=== PATIENT | female | born 1990 | race Hispanic/Latino ===

== ENCOUNTER 2021-08-15 10:37 | Emergency (ER) | payer OTHER ==
--- OUTSIDE RECORDS SUMMARY | 2021-08-15 10:40 | XMS REPORT | Continuity of Care Document ---
:1990 Author Organization [facility] t Address [facility] [address] [place] [address] Care Team Providers Name Role Phone [facility] Attending Clinician Unavailable LAURA LAIRD Attending Clinician Unavailable LACIE YU Attending Clinician Unavailable LACIE YU Admitting Clinician Unavailable Problems This patient has no known problems. Allergies, Adverse Reactions, Alerts This patient has no known allergies or adverse reactions. Medications This patient has no known medications. Procedures This patient has no known procedures. Encounters Start End Encounter Admission Attending Care Care Encounter Source Date/Time Date/Time Type Type Clinicians Facility Department ID 2021-07-01 2021-07-01 Outpatient [facility] [id number] [place] 00:00:00 00:00:00 MEHUL [address] 2021-06-08 2021-06-08 Outpatient [facility] [id number] [place] 00:00:00 00:00:00 MEHUL [address] 2021-06-08 2021-06-08 Outpatient [facility] [id number] [place] 00:00:00 00:00:00 MEHUL [address] 2021-02-25 2021-02-25 Emergency E BRADY LAIRD [facility] [id number] [facility] 09:36:00 13:31:00 2020-07-04 2020-07-05 Inpatient ANDREW YU AUGIE [id number] 11:14:00 12:26:00 INDIO Tucker [facility] 2020-07-01 2020-07-02 [facility] [id number] [facility] 14:28:00 02:05:00 INDIO [facility] 2020-04-01 2020-04-01 Outpatient [facility] A[place] [id number] [facility] 10:01:00 12:35:00 INDIO Duran [facility] Results This patient has no known results.
[2021-08-15 11:20] LABS: Absolute Lymphocytes (CBC) 1.4 K/uL (0.7-4.9); Hematocrit 27.8 % (36.0-45.0); Lymphocytes % 27.8 % (15.3-44.8); MPV 7.1 fL (7.6-11.3)
[2021-08-15 11:39] LABS: Potassium 3.7 mmol/L (3.5-5.1); Troponin High Sensitivity 3.6 pg/mL (<58.9)
--- NOTE | 2021-08-15 11:59 | RAD REPORT ---
EXAM DESCRIPTION: RAD - Chest Single View - 08/15/2021 11:48 am CLINICAL HISTORY: SOB COMPARISON: No comparisons FINDINGS: Lines: None. Lungs: No evidence of edema or pneumonia. Pleural: No significant pleural effusions or pneumothorax. Cardiac: The heart size is within normal limits. Bones: No acute fractures. Other: IMPRESSION: No acute cardiopulmonary disease.
[2021-08-15 12:22] LABS: Anisocytosis 1+; Blood Morphology Comment NOTED (NOT SEEN); Hypochromasia 1+; Platelet Estimate INCR; Platelets, Giant 1+; Poikilocytosis 1+; White Blood Cell Scan OK (OK)
[2021-08-15 12:23] LABS: Elliptocytes 1+; Target Cells 1+
[2021-08-15 12:43] LABS: Protime INR 1.25
[2021-08-15] MEDS ORDERED: APIXABAN 5 MG TABLET ONE ×2 (12:45→13:50)
--- NOTE | 2021-08-15 12:51 | RAD REPORT ---
EXAM DESCRIPTION: CT - Chest For Pe Angio - 08/15/2021 12:41 pm CLINICAL HISTORY: sob COMPARISON: Extremity Venous Uni Ltd dated 08/15/2021 FINDINGS: Chest Wall: No suspicious thyroid nodules or pathologic lymphadenopathy. Lungs: Limited by motion. No edema or consolidation. Pleura: No significant effusions or pneumothorax. Mediastinum/derek: No pathologic lymphadenopathy. Pulmonary arteries/Aorta: No central pulmonary embolus. Many of the segmental and subsegmental pulmon nolan arteries are not well assessed due to motion. No aortic aneurysm. Heart: No significant pericardial effusion. Normal heart size. Upper abdomen: Gastric bypass. Bones: No acute abnormality. All CT scans are performed using dose optimization technique as appropriate and may include automated exposure control or mA/KV adjustment according to patient size. IMPRESSION: Limited by motion. No central pulmonary embolus. A small peripheral embolus could be obs cured. No alternate process identified.
--- NOTE | 2021-08-15 12:55 | RAD REPORT ---
EXAM DESCRIPTION: US - Extremity Venous Uni Ltd - 08/15/2021 12:35 pm CLINICAL HISTORY: DVT COMPARISON: None. TECHNIQUE: Real-time sonographic evaluation of the right lower extremity deep venous systems was per formed. FINDINGS: The posterior tibial vein was difficult visualize. The submitted images show a potentially occluded posterior tibial vein. Reportedly, the vein may have not been compressible. The remaining v eins are patent. The patient was scanned in a sitting position due to recent surgery. IMPRESSION: Findings are suspicious for deep venous thrombosis in the right posterior tibial vein. R emaining veins are patent.
--- NOTE | 2021-08-15 13:41 | ER ---
Nurse's Notes [facility] Name: Hermelinda Sauceda Age: 30 yrs Sex: Female : 1990 Arrival Date: 08/15/2021 Time: 10:38 Bed 8 Private MD: Diagnosis: Acute embolism and thrombosis of deep veins of lower extremity-right Presentation: 08/15 10:52 Chief complaint: Patient states: Kendrick guillermo July [birth year], woke this morning with right jl7 leg redness and swelling, mild SOB with activity. Coronavirus screen: At this time, the client does not indicate any symptoms associated with coronavirus-19. Ebola Screen: No symptoms or risks identified at this time. Initial Sepsis Screen: Does the patient meet any 2 criteria? No. Patient's initial sepsis screen is negative. Does the patient have a suspected source of infection? No. Patient's initial sepsis screen is negative. Risk Assessment: Do you want to hurt yourself or someone else? Patient reports no desire to harm self or others. Onset of symptoms was August 15, 2021. 10:52 Method Of Arrival: Ambulatory 7 10:52 Acuity: YANCI 2 jl7 Triage Assessment: 10:54 General: Appears in no apparent distress. uncomfortable, Behavior is calm, cooperative, jl7 appropriate for age. Pain: Complains of pain in right leg Pain currently is 6 out of 10 on a pain scale. Neuro: Level of Consciousness is awake, alert, obeys commands, Oriented to person, place, time, situation. Cardiovascular: Patient's skin is warm and dry. Respiratory: Airway is patent Respiratory effort is even, unlabored, Respiratory pattern is regular, symmetrical. Derm: Skin is pink, warm \T\ dry. 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 - Social history:: Smoking status: Patient denies any tobacco usage or history of. Patient/guardian denies using alcohol, street drugs, The patient lives with family. - Family history:: not pertinent. Screenin:03 Abuse screen: Denies threats or abuse. Denies injuries from another. Nutritional jl7 screening: No deficits noted. Tuberculosis screening: No symptoms or risk factors identified. Fall Risk IV access (20 points). Total Lepe Fall Scale indicates No Risk (0-24 pts). Assessment: 12:03 Reassessment: Pt requesting to be wheeled to the restroom, informed pt due to possible jl7 DVT and/or PE she is to remain in bed and walking increased the risk for dislodging any clot there may be, pt verbalized understanding and continues to request to not use the bedpan. Reports she will not be able to get on top of the bedpan due to her recent tummy tuck. Assisted pt to bedside commode. Vital Signs: 10:52 BP 122 / 68; Pulse 93; Resp 17; Pulse Ox 100% on R/A; Weight 93.89 kg; Height 5 ft. 8 jl7 in. (172.72 cm); Pain 6/10; 11:00 Temp 97.7(TE); jl7 12:03 BP 123 / 70; Pulse 94; Resp 15; Pulse Ox 98% ; jl7 13:30 BP 117 / 63; Pulse 80; Resp 15; Pulse Ox 98% ; jl7 10:52 Body Mass Index 31.47 (93.89 kg, 172.72 cm) jl7 ED Course: 10:38 Patient arrived in ED. as 10:43 Dequan Menendez MD is Attending Physician. ma2 10:51 Inserted saline lock: 20 gauge in right antecubital area, using aseptic technique. em1 Blood collected. 10:54 Triage completed. jl7 10:54 Arm band placed on right wrist. jl7 10:55 Nicholas Issa RN is Primary Nurse. jl7 11:00 Initial lab(s) drawn, by ED staff, sent to lab. jl7 11:23 EKG done, by ED staff, reviewed by Dequan Menendez MD. em1 11:45 Notified ED physician of a critical lab result(s). D-Dimer 2165. jl7 11:50 XRAY Chest (1 view) In Process Unspecified. EDMS 12:03 Patient has correct armband on for positive identification. Bed in low position. Call jl7 light in reach. Side rails up X2. Client placed on continuous cardiac and pulse oximetry monitoring. NIBP monitoring applied. Warm blanket given. 12:35 US Extremity Venous Unilateral Ltd In Process Unspecified. EDMS 12:43 CT Chest For PE Angio In Process Unspecified. EDMS 13:39 Kurtis Peterson MD is Referral Physician. ma2 14:02 No provider procedures requiring assistance completed. IV discontinued, intact, jl7 bleeding controlled, No redness/swelling at site. Pressure dressing applied. Administered Medications: 13:30 Drug: Eliquis (apixaban) 10 mg Route: PO; jl7 14:01 Follow up: Response: Medication administered at discharge. jl7 Medication: 12:03 VIS not applicable for this client. jl7 Outcome: 13:40 Discharge ordered by . [facility] 14:02 Discharged to home via wheelchair, with family. jl7 14:02 Condition: stable 14:02 Discharge instructions given to patient, family, Instructed on discharge instructions, follow up and referral plans. medication usage, Demonstrated understanding of instructions, follow-up care, medications, Prescriptions given X 1. 14:03 Patient left the ED. jl7 Signatures: Dispatcher [employer] EDMS Jennifer Russell Eric em1 Meghna Reza, MONET RN [email or web address] Nicholas Issa RN RN jl7 Dequan Menendez MD MD wa2 Corrections: (The following items were deleted from the chart) 10:50 10:47 Meghna Reza, RN is Primary Nurse. aa5 aa5
--- NOTE | 2021-08-15 13:41 | EDPHYS ---
Physician Documentation [facility] Name: Hermelinda Sauceda Age: 30 yrs Sex: Female : 1990 Arrival Date: 08/15/2021 Time: 10:38 Bed 8 Private MD: ED Physician Dequan Menendez HPI: 08/15 13:33 This 30 yrs old Female presents to ER via Ambulatory with complaints of r/o ma2 dvt. 13:34 Patient had tummy tuck surgery will, presents with right leg swelling for 2 days mild, ma2 denies pain or trauma. Denies shortness of breath cough or chest pain. 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 - Social history:: Smoking status: Patient denies any tobacco usage or history of. Patient/guardian denies using alcohol, street drugs, The patient lives with family. - Family history:: not pertinent. ROS: 13:34 Constitutional: Negative for fever, chills, and weight loss, Eyes: Negative for injury, ma2 pain, redness, and discharge, ENT: Negative for injury, pain, and discharge, Neck: Negative for injury, pain, and swelling, Cardiovascular: Negative for chest pain, palpitations, and edema, Respiratory: Negative for shortness of breath, cough, wheezing, and pleuritic chest pain, Abdomen/GI: Negative for abdominal pain, nausea, diarrhea, and constipation, MS/Extremity: Negative for injury and deformity, Skin: Negative for injury, rash, and discoloration, Neuro: Negative for headache, weakness, numbness, tingling, and seizure, Psych: Negative for depression, anxiety, suicide ideation, homicidal ideation, and hallucinations, Allergy/Immunology: Negative for hives, rash, and allergies. Exam: 13:34 Constitutional: This is a well developed, well nourished patient who is awake, alert, ma2 and in no acute distress. ENT: Nares patent. No nasal discharge, no septal abnormalities noted. Tympanic membranes are normal and external auditory canals are clear. Oropharynx with no redness, swelling, or masses, exudates, or evidence of obstruction, uvula midline. Mucous membranes moist. Neck: Trachea midline, no thyromegaly or masses palpated, and no cervical lymphadenopathy. Supple, full range of motion without nuchal rigidity, or vertebral point tenderness. No Meningismus. Chest/axilla: Normal chest wall appearance and motion. Nontender with no deformity. No lesions are appreciated. Cardiovascular: Regular rate and rhythm with a normal S1 and S2. No gallops, murmurs, or rubs. Normal PMI, no JVD. No pulse deficits. Respiratory: Lungs have equal breath sounds bilaterally, clear to auscultation and percussion. No rales, rhonchi or wheezes noted. No increased work of breathing, no retractions or nasal flaring. Abdomen/GI: Soft, non-tender, with normal bowel sounds. No distension or tympany. No guarding or rebound. No evidence of tenderness throughout. Skin: Warm, dry with normal turgor. Normal color with no rashes, no lesions, and no evidence of cellulitis. MS/ Extremity: Pulses equal, no cyanosis. Neurovascular intact. Full, normal range of motion. Neuro: Awake and alert, GCS 15, oriented to person, place, time, and situation. Cranial nerves II-XII grossly intact. Motor strength 5/5 in all extremities. Sensory grossly intact. Cerebellar exam normal. Normal gait. 13:34 Musculoskeletal/extremity: Extremities: ROM: intact in all extremities, Circulation is intact in all extremities. Pulses: are normal with no appreciated deficits, Perfusion: the patient is normally perfused throughout, Sensation intact. Compartment Syndrome exam of affected extremity: is normal. no pain, no numbness, no tingling, no sensation deficit, Tendon exam: DVT Exam: no pain, no tenderness, negative Homans' sign noted on exam, no appreciated bluish discoloration, no erythema, no increased warmth, swelling. 13:34 MS/ Extremity: As above there is swelling of the right calf muscle, excluding thigh, ma2 otherwise no change in discoloration pulses equal, no cyanosis. Neurovascular intact. Full, normal range of motion. Vital Signs: 10:52 BP 122 / 68; Pulse 93; Resp 17; Pulse Ox 100% on R/A; Weight 93.89 kg; Height 5 ft. 8 jl7 in. (172.72 cm); Pain 6/10; 11:00 Temp 97.7(TE); jl7 12:03 BP 123 / 70; Pulse 94; Resp 15; Pulse Ox 98% ; jl7 13:30 BP 117 / 63; Pulse 80; Resp 15; Pulse Ox 98% ; jl7 10:52 Body Mass Index 31.47 (93.89 kg, 172.72 cm) 7 MDM: 13:34 Differential diagnosis: contusion, abrasion, Isolated DVT of the right leg there is no ma2 PE on CT. Patient also has no signs or symptoms of PE. 13:36 Data reviewed: vital signs, nurses notes. Counseling: I had a detailed discussion with ma2 the patient and/or guardian regarding: the historical points, exam findings, and any diagnostic results supporting the discharge/admit diagnosis, the presence of at least one elevated blood pressure reading (>120/80) during this emergency department visit, the need for outpatient follow up. Response to treatment: There is no appreciated change of the patient's symptoms at this time. 13:37 ED course: DVT of right popliteal vein, isolated, will give Eliquis in the ER, can ma2 start Eliquis twice a day ten milligram for 1 week and then 5 mg twice daily. 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 13:40 Patient medically screened. [facility] 08/15 11:01 Order name: Basic Metabolic Panel; Complete Time: 12:31 de08/15 11:01 Order name: CBC with Diff; Complete Time: 12:31 [facility] 08/15 11:01 Order name: D-Dimer; Complete Time: 12:31 [facility] 08/15 11:01 Order name: NT PRO-BNP; Complete Time: 12:31 [facility] 08/15 11:01 Order name: Troponin HS; Complete Time: 12:31 [facility] 08/15 12:20 Order name: SARS-COV-2 RT PCR (Document "Date of Onset" if Symptomatic); Complete Time: eb 13:49 08/15 10:55 Order name: US Extremity Venous Unilateral Ltd; Complete Time: 13:26 de2 08/15 11:01 Order name: XRAY Chest (1 view); Complete Time: 12:31 de2 08/15 11:01 Order name: EKG; Complete Time: 11:08/15 12:03 Order name: CT Chest For PE Angio; Complete Time: 13: de2 08/15 12:23 Order name: CBC Smear Scan; Complete Time: 12:31 EDMS 08/15 12:31 Order name: PT-INR; Complete Time: 13: ma2 08/15 12:31 Order name: Ptt, Activated; Complete Time: 13: de2 08/15 11:01 Order name: Cardiac monitoring; Complete Time: 11: de08/15 11:01 Order name: EKG - Nurse/Tech; Complete Time: 11: de08/15 11:01 Order name: IV Saline Lock; Complete Time: 11: de08/15 11:01 Order name: Labs collected and sent; Complete Time: 11: de08/15 11:01 Order name: O2 Per Protocol; Complete Time: 11:08/15 11:01 Order name: O2 Sat Monitoring; Complete Time: 11:04 ma2 Administered Medications: 13:30 Drug: Eliquis (apixaban) 10 mg Route: PO; jl7 14:01 Follow up: Response: Medication administered at discharge. jl7 Disposition Summary: 08/15/21 13:40 Discharge Ordered Location: Home ma2 Condition: Stable ma2 Diagnosis - Acute embolism and thrombosis of deep veins of lower extremity - right ma2 Followup: ma2 - With: Kurtis Peterson MD - When: Tomorrow - Reason: If symptoms return, Continuance of care Followup: ma2 - With: Private Physician - When: Tomorrow - Reason: If symptoms return, Continuance of care Discharge Instructions: - Discharge Summary Sheet ma2 - Deep Vein Thrombosis ma2 Forms: - Medication Reconciliation Form ma2 - Thank You Letter ma2 - Antibiotic Education ma2 - Prescription Opioid Use ma2 Prescriptions: - ELIQUIS 10 mg twice a day for 1 week. After 1 week, reduce dose to the 5 mg twice a day - take 1 tablet by ORAL route 2 times per day; 60 tablet; Refills: 0, Product ma2 Selection Permitted Signatures: Dispatcher [employer] Nicholas Núñez RN RN jl7 Dequan Menendez MD MD ma2
[2021-08-15 19:38] VITALS: TEMP 97.7
[2021-08-15 19:40] VITALS: O2SAT 98
[2021-08-15 19:41] VITALS: BP 117/63
--- NOTE | 2021-08-16 14:48 | EKG ---
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
== END 2021-08-15 14:03 | disposition home or self-care (01) ==
LOC: ER 10:37
DX: I82.401 Acute embolism and thrombosis of unspecified deep veins of right lower extremity (principal); Z20.822 Contact with and (suspected) exposure to COVID-19
CPT/HCPCS: 93005; 85025; 80048; 36415; 85610; 85379; 85730; 84484; 83880; 71275; 71045; 93971; 99284; U0003; Q9967

== ENCOUNTER 2021-08-17 08:51 | Emergency (ER) | payer OTHER ==
--- OUTSIDE RECORDS SUMMARY | 2021-08-17 08:54 | XMS REPORT | Continuity of Care Document ---
:[address] [facility] t Address Critical access hospital[facility] [address] [place] [address] Care Team Providers Name Role Phone MEHUL KWON Attending Clinician Unavailable BRADY LAIRD Attending Clinician Unavailable LACIE YU Attending [...] Clinicians Facility Department ID 2021-07-01 2021-07-01 Outpatient [facility] [id number] [place] 00:00:00 00:00:00 MEHUL [address] 2021-06-08 2021-06-08 Outpatient [facility] [id number] [place] 00:00:00 00:00:00 MEHUL [address] 2021-06-08 2021-06-08 Outpatient [facility] [id number] [place] 00:00:00 00:00:00 MEHUL [address] 2021-02-25 2021-02-25 Emergency [facility] [address] [place] 09:36:00 13:31:00 2020-07-04 2020-07-05 Inpatient AIMEE TONG [place] [id number] 11:14:00 12:26:00 INDIO jane [facility] 2020-07-01 2020-07-02 [id number] [facility] 14:28:00 02:05:00 INDIO jane [facility] 2020-04-01 2020-04-01 [facility] [id number] [facility] 10:01:00 12:35:00 INDIO jane [facility] Results This patient has no known results.
--- NOTE | 2021-08-17 09:47 | EDPHYS ---
Physician Documentation [facility] Name: Hermelinda Sauceda Age: 30 yrs Sex: Female : 1990 Arrival Date: 08/17/2021 Time: 08:53 Bed Treatment Private MD: Gilberto Anderson HPI: 08/17 09:10 This 30 yrs old Female presents to ER via Ambulatory with complaints of Blood jmm Clot. 09:10 The patient presents with swelling. Is a 30-year-old female who was recently diagnosed jmm with a DVT in her right leg the presents emerged part with complaints of increased swelling, in particular to the right proximal leg. Patient denies chest pain or shortness of breath. Patient was recently put on a course of Xarelto.. 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 - Social history:: Smoking status: Patient denies any tobacco usage or history of. ROS: 09:10 Constitutional: Negative for fever, chills, and weight loss, Cardiovascular: Negative jmm for chest pain, palpitations, and edema, Respiratory: Negative for shortness of breath, cough, wheezing, and pleuritic chest pain. 09:10 MS/extremity: Positive for swelling. 09:10 All other systems are negative. Exam: 09:10 Constitutional: This is a well developed, well nourished patient who is awake, alert, jmm and in no acute distress. Head/Face: atraumatic. Eyes: EOMI, no conjunctival erythema appreciated ENT: Moist Mucus Membranes Neck: Trachea midline, Supple Chest/axilla: Normal chest wall appearance and motion. Cardiovascular: Regular rate and rhythm. No edema appreciated Respiratory: Normal respirations, no respiratory distress appreciated Abdomen/GI: Non distended, soft Back: Normal ROM Skin: General appearance color normal MS/ Extremity: Moves all extremities, no obvious deformities appreciated, no edema noted to the lower extremities Neuro: Awake and alert Psych: Behavior is normal, Mood is normal, Patient is cooperative and pleasant Vital Signs: 09:05 BP 121 / 61; Pulse 72; Resp 16; Temp 98.5; Pulse Ox 98% ; Weight 93.89 kg; Height 5 ft. ll1 8 in. (172.72 cm); Pain 3/10; 09:05 Body Mass Index 31.47 (93.89 kg, 172.72 cm) ll1 MDM: 09:11 Patient medically screened. [facility] 19:42 Data reviewed: vital signs, nurses notes. Counseling: I had a detailed discussion with william the patient and/or guardian regarding: the historical points, exam findings, and any diagnostic results supporting the discharge/admit diagnosis, radiology results, the need for outpatient follow up, to return to the emergency department if symptoms worsen or persist or if there are any questions or concerns that arise at home. ED course: Ultrasound revealed similar study. Patient was evaluated by Dr. Jay. Vital signs are normal. I do not suspect PE. Patient otherwise given strict return precautions. Patient understood agrees plan of care. 08/17 09:09 Order name: US Extremity Venous Unilateral Ltd [facility] Administered Medications: No medications were administered Disposition Summary: 08/17/21 09:46 Discharge Ordered Location: Home [facility] Condition: Stable [facility] Diagnosis - Deep Vein Thrombosis [facility] Followup: [facility] - With: Kurtis Peterson MD - When: 2 - 3 days - Reason: Recheck today's complaints, Continuance of care, Re-evaluation by your physician Discharge Instructions: - Discharge Summary Sheet [facility] - Deep Vein Thrombosis [facility] Forms: - Medication Reconciliation Form [facility] - Thank You Letter [facility] - Antibiotic Education [facility] - Prescription Opioid Use [facility] Signatures: Dispatcher [employer] EDMS Inocente Marcelo PA PA jmm Lewis, Lynsay, RN RN ll1 Corrections: (The following items were deleted from the chart) 09:53 09:27 IV Saline Lock ordered. [facility] ll1
--- NOTE | 2021-08-17 09:47 | ER ---
Nurse's Notes [facility] Name: Hermelinda Sauceda Age: 30 yrs Sex: Female : 1990 Arrival Date: 08/17/2021 Time: 08:53 Bed Treatment Private MD: Diagnosis: Deep Vein Thrombosis Presentation: 08/17 09:05 Chief complaint: Patient states: R leg swelling for 1 day. Knows she has a blood clot ll1 in that leg. Wants to make sure it hasn't traveled. No CP or SOB. Coronavirus screen: Vaccine status: Patient reports receiving the 2nd dose of the covid vaccine. Client denies travel out of the [place] in the last 14 days. At this time, the client does not indicate any symptoms associated with coronavirus-19. Ebola Screen: Patient denies travel to an Ebola-affected area in the 21 days before illness onset. Initial Sepsis Screen: Does the patient meet any 2 criteria? No. Patient's initial sepsis screen is negative. Does the patient have a suspected source of infection? No. Patient's initial sepsis screen is negative. Risk Assessment: Do you want to hurt yourself or someone else? Patient reports no desire to harm self or others. Onset of symptoms was August 17, 2021. 09:05 Method Of Arrival: Ambulatory ll1 09:05 Acuity: YANCI 3 ll1 Triage Assessment: 09:07 General: Appears uncomfortable, Behavior is cooperative, appropriate for age. Pain: ll1 Complains of pain in R leg Quality of pain is described as aching. Neuro: No deficits noted. Cardiovascular: No deficits noted. Respiratory: No deficits noted. Musculoskeletal: Reports pain in right leg. PSYCHIATRIC ORDERLY: 09:58 LMP N/A - ll1 Historical: - Allergies: 09:06 No Known Allergies; ll1 - PMHx: 09:06 None; ll1 - PSHx: 09:06 gastric sleeve; Tummy tuck; ll1 - Immunization history:: Client reports receiving the 2nd dose of the Covid vaccine. - Social history:: Smoking status: Patient denies any tobacco usage or history of. Screenin:57 Abuse screen: Denies threats or abuse. Nutritional screening: No deficits noted. ll1 Tuberculosis screening: No symptoms or risk factors identified. Fall Risk Total Lepe Fall Scale indicates No Risk (0-24 pts). Assessment: 09:57 Reassessment: No changes from previously documented assessment. Patient and/or family ll1 updated on plan of care and expected duration. Pain level reassessed. Patient is alert, oriented x 3, equal unlabored respirations, skin warm/dry/pink. Vital Signs: 09:05 BP 121 / 61; Pulse 72; Resp 16; Temp 98.5; Pulse Ox 98% ; Weight 93.89 kg; Height 5 ft. ll1 8 in. (172.72 cm); Pain 3/10; 09:05 Body Mass Index 31.47 (93.89 kg, 172.72 cm) ll1 ED Course: 08:53 Patient arrived in ED. mr 08:54 Inocente Marcelo PA is PHCP. [facility] 08:54 Gilberto Robbins MD is Attending Physician. [facility] 09:05 Arm band placed on Patient placed in an exam room, on a stretcher. ll1 09:06 Triage completed. ll1 09:32 US Extremity Venous Unilateral Ltd In Process Unspecified. EDMS 09:46 Kurtis Peterson MD is Referral Physician. [facility] 09:57 No provider procedures requiring assistance completed. Patient did not have IV access ll1 during this emergency room visit. 09:58 Patient has correct armband on for positive identification. Bed in low position. Call ll1 light in reach. Cardiac monitoring not applicable on this patient. Administered Medications: No medications were administered Medication: 18:14 VIS not applicable for this client. ll1 Outcome: 09:46 Discharge ordered by . [facility] 09:58 Patient left the ED. 1 09:58 Discharged to home ambulatory. 1 09:58 Condition: stable 09:58 Discharge instructions given to patient, Instructed on discharge instructions, follow up and referral plans. Demonstrated understanding of instructions, follow-up care. Signatures: Dispatcher [employer] EDMS Inocente Marcelo PA PA jmm Rivera, Mary Marquise Samuels RN RN ll1
[2021-08-17 10:01] VITALS: BP 121/61; TEMP 98.5; O2SAT 98
--- NOTE | 2021-08-17 10:04 | RAD REPORT ---
[facility]34 am CLINICAL HISTORY: Right leg swelling. COMPARISON: August 15, 2021 FINDINGS: Right common femoral, superficial femoral, and popliteal veins are compressible and demons trate augmentation. Doppler demonstrates good flow. Echogenic material consistent with acute thrombus is present within the right posterior tibial vein. The vein is not compressible. Grayscale, color and spectral analysis performed on all vessels IMPRESSION: Acute thrombus right posterior tibial vein without significant change from the prior exa m
== END 2021-08-17 09:58 | disposition home or self-care (01) ==
LOC: ER 08:51
DX: I82.401 Acute embolism and thrombosis of unspecified deep veins of right lower extremity (principal)
CPT/HCPCS: 93971; 99283

== ENCOUNTER 2021-08-26 05:19 | Emergency (ER) | payer OTHER ==
--- OUTSIDE RECORDS SUMMARY | 2021-08-26 05:21 | XMS REPORT | Continuity of Care Document ---
:1990 Author Organization [facility] t Address [facility] [place] [address] Care Team Providers Name Role Phone MEHUL [...] Date/Time Type Type Clinicians Facility Department ID 2021-08-20 2021-08-20 Outpatient [facility] [id number] [place] 00:00:00 00:00:00 MEHUL [address] 2021-07-01 2021-07-01 Outpatient [facility] [id number] [place] 00:00:00 00:00:00 MEHUL [address] 2021-06-08 2021-06-08 Outpatient [facility] [id number] [place] 00:00:00 00:00:00 MEHUL [address] 2021-06-08 2021-06-08 Outpatient [facility] [id number] [place] 00:00:00 00:00:00 MEHUL [address] 2021-02-25 2021-02-25 Emergency [facility] [address] 09:36:00 13:31:00 2020-07-04 2020-07-05 [facility]patient [facility] [address] 11:14:00 12:26:00 INDIO jane [facility] 2020-07-01 2020-07-02 Outpatient [facility] [id number] 14:28:00 02:05:00 INDIO jane [facility] 2020-04-01 2020-04-01 Outpatient [facility] [address] 10:01:00 12:35:00 INDIO jane [facility] Results This patient has no known results.
[2021-08-26 06:03] LABS: Absolute Lymphocytes (CBC) 2.2 K/uL (0.7-4.9); Hematocrit 22.3 % (36.0-45.0); Lymphocytes % 43.1 % (15.3-44.8); MPV 7.2 fL (7.6-11.3); RBC Red Blood Cell Count 2.84 M/uL (3.86-4.86)
[2021-08-26 06:11] LABS: Urine Blood 3+ (Negative); Urine Glucose Negative (Negative); Urine Protein 2+ (Negative); Urine Specific Gravity >=1.030 (1.005-1.030); Urine pH 5.5 (5.0-7.0)
[2021-08-26 06:12] LABS: Potassium 3.3 mmol/L (3.5-5.1)
--- NOTE | 2021-08-26 09:23 | ER ---
Nurse's Notes [facility] Name: Hermelinda Sauceda Age: 30 yrs Sex: Female : 1990 Arrival Date: 08/26/2021 Time: 05:21 Bed 23 Private MD: Diagnosis: Vaginal bleeding secondary to Xerelto use, Anemia Presentation: 08/26 05:33 Chief complaint: Patient states: "In July I had surgery and on August 15 I can in and as6 was diagnosed with a DVT, I had been on blood thinners and now I have been on my period for 11 days. Is it really heavy. I am soaking through a tampon every hour". Coronavirus screen: At this time, the client does not indicate any symptoms associated with coronavirus-19. Ebola Screen: No symptoms or risks identified at this time. Initial Sepsis Screen: Does the patient meet any 2 criteria? No. Patient's initial sepsis screen is negative. Does the patient have a suspected source of infection? No. Patient's initial sepsis screen is negative. Risk Assessment: Do you want to hurt yourself or someone else? Patient reports no desire to harm self or others. Onset of symptoms was August 16, 2021. 05:33 Method Of Arrival: Ambulatory as6 05:33 Acuity: YANCI 3 as6 Triage Assessment: 05:38 General: Appears in no apparent distress. Behavior is calm, cooperative. Pain: as6 Complains of pain in abdomen Quality of pain is described as crampy. : Reports cramping, vaginal bleeding that is bright red, with clots, heavy flow. 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 - Social history:: Smoking status: Patient denies any tobacco usage or history of. Screenin:53 Abuse screen: Denies threats or abuse. Denies injuries from another. Nutritional as6 screening: No deficits noted. Tuberculosis screening: No symptoms or risk factors identified. Fall Risk None identified. Assessment: 05:52 General: Appears in no apparent distress. Behavior is calm, cooperative. Pain: as6 Complains of pain in abdomen Quality of pain is described as crampy. Neuro: Level of Consciousness is awake, alert, obeys commands, Oriented to person, place, time, situation. Cardiovascular: JVD is absent Patient's skin is warm and dry. Respiratory: Respiratory effort is even, unlabored, Respiratory pattern is regular, symmetrical. GI: Reports lower abdominal pain. : Reports cramping, in bilateral lower quadrant(s) vaginal bleeding that is bright red, with clots, heavy flow. 06:48 Reassessment: Patient and/or family updated on plan of care and expected duration. Pain ag7 level reassessed. Patient is alert, oriented x 3, equal unlabored respirations, skin warm/dry/pink. The patient verbalize x 1 tampon per hour-two, heavy menstrual with clotting Patient denies pain at this time. 10:05 Reassessment: Patient appears in no apparent distress at this time. Patient and/or ss family updated on plan of care and expected duration. Pain level reassessed. Patient is alert, oriented x 3, equal unlabored respirations, skin warm/dry/pink. Attempted to call report to [facility]. Nurse is unavailable and states to call back in 15 minutes. 10:29 Reassessment: Report given to MONET Palacio at [facility]. Neuro: Donald ss Agitation-Sedation Scale (RASS): 0 - Alert and Calm Level of Consciousness is awake, alert, obeys commands. Derm: Skin is pink, warm \\T\\ dry. normal. 11:27 Reassessment: Awaiting EMS transportation. 12:03 Reassessment: Report given to EMS. Vital Signs: 05:33 BP 125 / 61; Pulse 87; Resp 18 S; Temp 98.3(O); Pulse Ox 100% on R/A; Weight 88.9 kg as6 (R); Height 5 ft. 7 in. (170.18 cm) (R); Pain 8/10; 10:15 BP 114 / 65; Pulse 84; Resp 14; Pulse Ox 100% on R/A; ss 05:33 Body Mass Index 30.70 (88.90 kg, 170.18 cm) as6 ED Course: 05:21 Patient arrived in ED. kz 05:36 Triage completed. as6 05:38 Arm band placed on. as6 05:50 Mundo Cano, RN is Primary Nurse. as6 05:51 Inserted saline lock: 20 gauge in right antecubital area, using aseptic technique. as6 Blood collected. 06:14 Dany Henderson MD is Attending Physician. kdr 06:50 Patient has correct armband on for positive identification. Bed in low position. Call ag7 light in reach. Adult w/ patient. 09:26 initiated transfer to [facility]. bd 10:58 pt accepted in transfer to [facility] by dr Bhardwaj,admin approval given by elysia Stern. 12:03 No provider procedures requiring assistance completed. Patient transferred, IV remains ss in place. Administered Medications: No medications were administered Medication: 06:50 VIS not applicable for this client. ag7 Outcome: 09:23 ER care complete, transfer ordered by . kdr 12:03 Transferred by ground EMS to [facility], Transfer form completed. ss 12:03 Condition: good 12:03 Instructed on Demonstrated understanding of instructions. 12:04 Patient left the ED. ss Signatures: Loreta Arechiga Kevin, MD MD kdr Smirch, Shelby, RN RN ss Mundo Cano, RN RN as6 Radha Somers Angela RN RN ag7
--- NOTE | 2021-08-26 09:23 | EDPHYS ---
Physician Documentation [facility] Name: Hermelinda Sauceda Age: 30 yrs Sex: Female : 1990 Arrival Date: 08/26/2021 Time: 05:21 Bed 23 Private MD: ED Physician Dany Henderson HPI: 08/27 03:37 This 30 yrs old Female presents to ER via Ambulatory with complaints of kdr Vaginal Bleeding. 03:37 Patient was diagnosed with a DVT on . She was then started on Xarelto. A few days kdr after that she began to have vaginal bleeding. She said for the past few days she has been going through about 1 pad an hour or 1 tampon per hour. Feeling lightheaded and weak. Has not had this before. 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 - Social history:: Smoking status: Patient denies any tobacco usage or history of. ROS: 08/27 03:57 Constitutional: Negative for fever, chills, and weight loss, Eyes: Negative for injury, kdr pain, redness, and discharge, Neck: Negative for injury, pain, and swelling, Cardiovascular: Negative for chest pain, palpitations, and edema, Respiratory: Negative for shortness of breath, cough, wheezing, and pleuritic chest pain, Abdomen/GI: Negative for abdominal pain, nausea, vomiting, diarrhea, and constipation, Back: Negative for injury and pain, : Negative for injury, bleeding, discharge, and swelling, MS/Extremity: Negative for injury and deformity, Skin: Negative for injury, rash, and discoloration, Psych: Negative for depression, anxiety, suicide ideation, homicidal ideation, and hallucinations, Allergy/Immunology: Negative for hives, rash, and allergies, Endocrine: Negative for neck swelling, polydipsia, polyuria, polyphagia, and marked weight changes, Hematologic/Lymphatic: Negative for swollen nodes, abnormal bleeding, and unusual bruising. Neuro: Positive for weakness, Negative for altered mental status, dizziness, gait disturbance, headache, hearing loss. Exam: 03:57 Constitutional: This is a well developed, well nourished patient who is awake, alert, kdr and in no acute distress. Head/Face: Normocephalic, atraumatic. Eyes: Pupils equal round and reactive to light, extra-ocular motions intact. Lids and lashes normal. Conjunctiva and sclera are non-icteric and not injected. Cornea within normal limits. Periorbital areas with no swelling, redness, or edema. Neck: Trachea midline, no thyromegaly or masses palpated, and no cervical lymphadenopathy. Supple, full range of motion without nuchal rigidity, or vertebral point tenderness. No Meningismus. Chest/axilla: Normal chest wall appearance and motion. Nontender with no deformity. No lesions are appreciated. Cardiovascular: Regular rate and rhythm with a normal S1 and S2. No gallops, murmurs, or rubs. Normal PMI, no JVD. No pulse deficits. Respiratory: Lungs have equal breath sounds bilaterally, clear to auscultation and percussion. No rales, rhonchi or wheezes noted. No increased work of breathing, no retractions or nasal flaring. Abdomen/GI: Soft, non-tender, with normal bowel sounds. No distension or tympany. No guarding or rebound. No evidence of tenderness throughout. Back: No spinal tenderness. No costovertebral tenderness. Full range of motion. Skin: Warm, dry with normal turgor. Normal color with no rashes, no lesions, and no evidence of cellulitis. MS/ Extremity: Pulses equal, no cyanosis. Neurovascular intact. Full, normal range of motion. Neuro: Awake and alert, GCS 15, oriented to person, place, time, and situation. Cranial nerves II-XII grossly intact. Motor strength 5/5 in all extremities. Sensory grossly intact. Cerebellar exam normal. Normal gait. Psych: Awake, alert, with orientation to person, place and time. Behavior, mood, and affect are within normal limits. Vital Signs: 08/26 05:33 BP 125 / 61; Pulse 87; Resp 18 S; Temp 98.3(O); Pulse Ox 100% on R/A; Weight 88.9 kg as6 (R); Height 5 ft. 7 in. (170.18 cm) (R); Pain 8/10; 10:15 BP 114 / 65; Pulse 84; Resp 14; Pulse Ox 100% on R/A; ss 05:33 Body Mass Index 30.70 (88.90 kg, 170.18 cm) as6 MDM: 09:23 Patient medically screened. kdr 08/27 03:57 Data reviewed: vital signs, nurses notes, lab test result(s), radiologic studies. kdr Counseling: I had a detailed discussion with the patient and/or guardian regarding: the historical points, exam findings, and any diagnostic results supporting the discharge/admit diagnosis, lab results, radiology results, the need to transfer to another facility, for higher level of care, [facility] does not immediately have the required specialist. 08/26 05:39 Order name: Abo/rh Typing; Complete Time: 06:28 08/26 05:39 Order name: Basic Metabolic Panel; Complete Time: 06:15 08/26 05:39 Order name: CBC with Diff; Complete Time: 06:15 08/26 06:11 Order name: Urine Dipstick-Ancillary; Complete Time: 06:15 EDMS 08/26 05:39 Order name: IV Saline Lock; Complete Time: 05:55 08/26 05:39 Order name: Labs collected and sent; Complete Time: 05:55 08/26 05:39 Order name: NPO; Complete Time: 05:55 08/26 05:39 Order name: Urine Dipstick-Ancillary (obtain specimen); Complete Time: 06:10 08/26 05:39 Order name: Urine Test (obtain specimen); Complete Time: 06:10 08/26 07:26 Order name: COVID-19 SARS RT PCR (Document "Date of Onset" if Symptomatic) bd Administered Medications: No medications were administered Disposition Summary: 08/26/21 09:23 Transfer Ordered Transfer Location: [facility] kdr Reason: Higher level of care kdr Condition: Fair kdr Problem: new kdr Symptoms: have improved kdr Accepting Physician: [facility](08/26/21 12:04) ss Diagnosis - Vaginal bleeding secondary to Xerelto use, Anemia kdr Forms: - Medication Reconciliation Form kdr - SBAR form kdr Signatures: Dispatcher [employer] EDDany Corral MD MD kdr Lynda Garzon RN RN ss Mundo Cano RN RN as6 Corrections: (The following items were deleted from the chart) 08/26 12:04 09:23 [facility] kdr ss
[2021-08-26 12:15] VITALS: TEMP 98.3; O2SAT 100
[2021-08-26 12:17] VITALS: BP 114/65
== END 2021-08-26 12:04 | disposition short-term general hospital (02) ==
LOC: ER 05:19
DX: D64.9 Anemia, unspecified (principal); Z79.01 Long term (current) use of anticoagulants; Z20.822 Contact with and (suspected) exposure to COVID-19; Z86.718 Personal history of other venous thrombosis and embolism; Z98.84 Bariatric surgery status
CPT/HCPCS: 85025; 80048; 36415; 86900; 86901; 81003; 99285; U0003